=== PATIENT | male | born 1960 | race Two or more races ===

== ENCOUNTER 2020-05-04 08:40 | Outpatient (CLI) | payer BC | END 2020-05-04 23:59 | disposition home or self-care (01) | LOC: CARD 08:40 | PROVIDERS: ATTEND Internal Medicine Interventional Cardiology | DX: I82.493 Acute embolism and thrombosis of other specified deep vein of lower extremity, bilateral (principal) | CPT/HCPCS: 93970-TC ==

== ENCOUNTER 2020-06-15 12:47 | Outpatient (CLI) | payer BC | END 2020-06-15 23:59 | disposition home or self-care (01) | LOC: CARD 12:47 | DX: R60.0 Localized edema (principal) | CPT/HCPCS: 93971-TC ==

== ENCOUNTER 2020-06-26 08:49 | Outpatient (CLI) | payer BC | END 2020-06-26 23:59 | disposition home or self-care (01) | LOC: US 08:49 | DX: R60.0 Localized edema (principal) | CPT/HCPCS: 76700-TC ==

== ENCOUNTER 2020-07-03 11:08 | Outpatient (CLI) | payer BC | END 2020-07-03 23:59 | disposition home or self-care (01) | LOC: MRI 11:08 | PROVIDERS: ATTEND Specialist | DX: M17.12 Unilateral primary osteoarthritis, left knee (principal); M25.462 Effusion, left knee | CPT/HCPCS: 73721-TC ==

== ENCOUNTER 2020-07-13 14:35 | Outpatient (CLI) | payer BC ==
[2020-07-13 16:44] LABS: CALCIUM, SERUM 8.8 mg/dL (8.5-10.1); CREATININE 0.8 mg/dL (0.6-1.3); POTASSIUM 3.9 mmol/L (3.5-5.1)
== END 2020-07-13 23:59 | disposition home or self-care (01) ==
LOC: LAB 14:35
PROVIDERS: ATTEND Surgery Vascular Surgery
DX: M79.89 Other specified soft tissue disorders (principal)
CPT/HCPCS: 36415; 80048-TC

== ENCOUNTER 2020-07-26 08:48 | Outpatient (CLI) | payer BC ==
[2020-07-26] MEDS ORDERED: IOHEXOL-300 100 ML VIAL IV ONE (09:00)
[2020-07-26] MEDS ORDERED: IV NS 0.9% 250 ML IV ONE (09:00)
== END 2020-07-26 23:59 | disposition home or self-care (01) ==
LOC: CT 08:48
PROVIDERS: ATTEND Surgery Vascular Surgery
DX: N40.0 Benign prostatic hyperplasia without lower urinary tract symptoms (principal); J98.11 Atelectasis; M47.819 Spondylosis without myelopathy or radiculopathy, site unspecified; Z90.49 Acquired absence of other specified parts of digestive tract
CPT/HCPCS: 74177; J7050; Q9967

== ENCOUNTER 2020-11-14 08:08 | Outpatient (CLI) | payer BC ==
[2020-11-14 09:06] LABS: BASOPHILS % (AUTO) 0.2 % (0.0-2.0); EOSINOPHILS % (AUTO) 1.9 % (0.0-6.0); HEMATOCRIT 49 % (39-51); HEMOGLOBIN 15.8 g/dL (13.5-17.5); LYMPHOCYTES # (AUTO) 2.2 /CMM (0.8-4.8); LYMPHOCYTES % (AUTO) 34.8 % (20.0-44.0); MEAN CORPUSCULAR HGB CONC 33 g/dl (31.0-36.0); MEAN CORPUSCULAR VOLUME 88 fL (80-96); MONOCYTES # (AUTO) 0.4 /CMM (0.1-1.30); MONOCYTES % (AUTO) 6.1 % (2.0-12.0); NEUTROPHILS # (AUTO) 3.6 /CMM (1.8-8.9); PLATELET COUNT (AUTO) 231 /CMM (150-450); RED BLOOD CELL COUNT(AUTO) 5.57 MIL/uL (4.5-6.0); WHITE BLOOD COUNT (AUTO) 6.3 K/uL (4.3-11.0)
[2020-11-14 09:09] LABS: BILIRUBIN,URINE NEGATIVE (NEGATIVE); COLOR,URINE YELLOW (YELLOW); LEUKOCYTE ESTERASE ,URINE NEGATIVE (NEGATIVE); NITRITE, URINE NEGATIVE (NEGATIVE); PROTEIN,URINE NEGATIVE (NEGATIVE); UGLUCOSE NEGATIVE (NEGATIVE); UROBILINOGEN,URINE 0.2 EU/dL (0.2)
[2020-11-14 10:00] LABS: PROSTATE SPECIFIC ANTIGEN SCR 1.34 ng/mL (0.00-4.00); THYROID STIMULATING HORMONE 2.454 uIU/mL (0.358-3.74)
[2020-11-14 10:03] LABS: BACTERIA,URINE None seen /HPF (None Seen); RBC,URINE 0-2 /HPF (0-2); SQUAMOUS EPITHELIAL CELL,UR Few /HPF (None Seen); WBC,URINE NONE SEEN /HPF (0-3)
[2020-11-14 10:27] LABS: ALBUMIN 3.9 g/dL (3.4-5.0); BILIRUBIN,TOTAL 0.6 mg/dL (0.2-1.0); CALCIUM, SERUM 8.5 mg/dL (8.5-10.1); CREATININE 0.9 mg/dL (0.6-1.3); MAGNESIUM 1.8 mg/dL (1.8-2.4); POTASSIUM 4.2 mmol/L (3.5-5.1); TOTAL PROTEIN, SERUM 7.3 g/dL (6.4-8.2)
== END 2020-11-14 23:59 | disposition home or self-care (01) ==
LOC: US 08:08
DX: E11.9 Type 2 diabetes mellitus without complications (principal); N40.0 Benign prostatic hyperplasia without lower urinary tract symptoms
CPT/HCPCS: 36415; 76856-TC; 80053-TC; 80061-TC; 81001; 82728-TC; 83540-TC; 83735-TC; 84153-TC; 84154-TC; 84443-TC; 85025-TC; 85652-TC

== ENCOUNTER 2021-05-24 08:45 | Outpatient (CLI) | payer BC | END 2021-05-24 23:59 | disposition home or self-care (01) | LOC: WOU 08:45 | PROVIDERS: ATTEND Podiatrist Foot & Ankle Surgery | DX: B35.1 Tinea unguium (principal); L60.0 Ingrowing nail; M79.675 Pain in left toe(s); E11.9 Type 2 diabetes mellitus without complications | CPT/HCPCS: 88304-TC; 88311-TC; 88312-TC; G0463 ==

== ENCOUNTER 2021-07-11 09:54 | Outpatient (CLI) | payer BC ==
[2021-07-11 10:46] LABS: BASOPHILS % (AUTO) 0.1 % (0.0-2.0); EOSINOPHILS % (AUTO) 1.7 % (0.0-6.0); HEMATOCRIT 47 % (39-51); HEMOGLOBIN 16.1 g/dL (13.5-17.5); LYMPHOCYTES # (AUTO) 1.8 K/uL (0.8-4.8); LYMPHOCYTES % (AUTO) 34.8 % (20.0-44.0); MEAN CORPUSCULAR HGB CONC 34 g/dl (31.0-36.0); MEAN CORPUSCULAR VOLUME 88 fL (80-96); MONOCYTES # (AUTO) 0.3 K/uL (0.1-1.30); MONOCYTES % (AUTO) 4.9 % (2.0-12.0); NEUTROPHILS % (AUTO) 58.5 % (43.0-81.0); PLATELET COUNT (AUTO) 212 K/uL (150-450); RED BLOOD CELL COUNT(AUTO) 5.36 MIL/uL (4.5-6.0); WHITE BLOOD COUNT (AUTO) 5.1 K/uL (4.3-11.0)
[2021-07-11 11:00] LABS: BILIRUBIN,URINE NEGATIVE (NEGATIVE); COLOR,URINE YELLOW (YELLOW); LEUKOCYTE ESTERASE ,URINE NEGATIVE (NEGATIVE); NITRITE, URINE POSITIVE (NEGATIVE); PROTEIN,URINE NEGATIVE (NEGATIVE); UGLUCOSE NEGATIVE (NEGATIVE); UROBILINOGEN,URINE 0.2 EU/dL (0.2)
[2021-07-11 11:19] LABS: RBC,URINE NONE SEEN /HPF (0-2)
[2021-07-11 11:20] LABS: BACTERIA,URINE None seen /HPF (None Seen); SQUAMOUS EPITHELIAL CELL,UR Rare /HPF (None Seen); WBC,URINE NONE SEEN /HPF (0-3)
[2021-07-11 11:25] LABS: PROSTATE SPECIFIC ANTIGEN SCR 0.57 ng/mL (0.00-4.00); THYROID STIMULATING HORMONE 2.904 uIU/mL (0.358-3.74)
[2021-07-11 11:40] LABS: ALBUMIN 4.4 g/dL (3.4-5.0); BILIRUBIN,TOTAL 0.7 mg/dL (0.2-1.0); CALCIUM, SERUM 8.6 mg/dL (8.5-10.1); CREATININE 1.1 mg/dL (0.6-1.3); TOTAL PROTEIN, SERUM 8.5 g/dL (6.4-8.2)
[2021-07-11 13:16] LABS: BILIRUBIN,DIRECT 0.2 mg/dL (0.0-0.2)
== END 2021-07-11 23:59 | disposition home or self-care (01) ==
LOC: LAB 09:54
PROVIDERS: ATTEND Internal Medicine
DX: R10.9 Unspecified abdominal pain (principal); N40.0 Benign prostatic hyperplasia without lower urinary tract symptoms; I10 Essential (primary) hypertension; E78.5 Hyperlipidemia, unspecified; E11.9 Type 2 diabetes mellitus without complications
CPT/HCPCS: 36415; 80053-TC; 80061-TC; 81001; 82248-TC; 82306; 82607-TC; 82728-TC; 83540-TC; 83735-TC; 84153-TC; 84439-TC; 84443-TC; 85025-TC; 85652-TC; 87086-TC

== ENCOUNTER 2021-07-16 09:59 | Outpatient (CLI) | payer BC ==
[2021-07-16] MEDS ORDERED: IOHEXOL-350 100 ML VIAL IV ONE (11:01)
== END 2021-07-16 23:59 | disposition home or self-care (01) ==
LOC: CT 09:59
PROVIDERS: ATTEND Internal Medicine
DX: N20.0 Calculus of kidney (principal); K76.9 Liver disease, unspecified
CPT/HCPCS: 74170; Q9967

== ENCOUNTER 2021-10-03 09:48 | Outpatient (CLI) | payer BC ==
[2021-10-03 14:50] LABS: BASOPHILS % (AUTO) 0.3 % (0.0-2.0); EOSINOPHILS % (AUTO) 1.5 % (0.0-6.0); HEMATOCRIT 46 % (39-51); HEMOGLOBIN 15.3 g/dL (13.5-17.5); LYMPHOCYTES # (AUTO) 2.5 K/uL (0.8-4.8); LYMPHOCYTES % (AUTO) 32.6 % (20.0-44.0); MEAN CORPUSCULAR HGB CONC 33 g/dl (31.0-36.0); MEAN CORPUSCULAR VOLUME 88 fL (80-96); MONOCYTES # (AUTO) 0.4 K/uL (0.1-1.30); MONOCYTES % (AUTO) 5.6 % (2.0-12.0); NEUTROPHILS # (AUTO) 4.7 K/uL (1.8-8.9); PLATELET COUNT (AUTO) 239 K/uL (150-450); RED BLOOD CELL COUNT(AUTO) 5.24 MIL/uL (4.5-6.0); WHITE BLOOD COUNT (AUTO) 7.8 K/uL (4.3-11.0)
[2021-10-03 15:13] LABS: URIC ACID 5.9 mg/dL (2.6-7.2)
[2021-10-03 15:22] LABS: ALANINE AMINOTRANSFERASE 27 U/L (12-78); ALKALINE PHOSPHATASE 74 U/L (46-116); ASPARTATE AMINOTRANSFERASE 15 U/L (15-37); BILIRUBIN,TOTAL 0.5 mg/dL (0.2-1.0); C-REACTIVE PROTEIN < 0.2 mg/dL (0.0-0.9); CALCIUM, SERUM 8.7 mg/dL (8.5-10.1); CARBON DIOXIDE 27 mmol/L (21-32); CHLORIDE 104 mmol/L (98-107); CREATININE 0.9 mg/dL (0.6-1.3); GLUCOSE 89 mg/dL (74-106); POTASSIUM 4.1 mmol/L (3.5-5.1); SODIUM SERUM 138 mmol/L (136-145); TOTAL PROTEIN, SERUM 7.3 g/dL (6.4-8.2); UREA NITROGEN, BLOOD 19 mg/dL (7-18)
== END 2021-10-03 23:59 | disposition home or self-care (01) ==
LOC: MRI 09:48
PROVIDERS: ATTEND Internal Medicine
DX: M17.11 Unilateral primary osteoarthritis, right knee (principal); M71.21 Synovial cyst of popliteal space [Baker], right knee; M25.461 Effusion, right knee; M22.41 Chondromalacia patellae, right knee; M65.861 Other synovitis and tenosynovitis, right lower leg; M79.89 Other specified soft tissue disorders
CPT/HCPCS: 36415; 73721-TC; 80053-TC; 84550-TC; 85025-TC; 85652-TC; 86140-TC; 86200; 86431-TC

== ENCOUNTER 2021-12-11 14:25 | Outpatient (CLI) | payer BC | END 2021-12-11 23:59 | disposition home or self-care (01) | LOC: MRI 14:25 | PROVIDERS: ATTEND Internal Medicine | DX: M51.27 Other intervertebral disc displacement, lumbosacral region (principal); M48.8X7 Other specified spondylopathies, lumbosacral region; M48.07 Spinal stenosis, lumbosacral region | CPT/HCPCS: 72148-TC ==

== ENCOUNTER 2022-05-08 10:17 | Outpatient (CLI) | payer BC ==
[2022-05-08 11:05] LABS: BASOPHILS % (AUTO) 0.1 % (0.0-2.0); BILIRUBIN,URINE NEGATIVE (NEGATIVE); COLOR,URINE YELLOW (YELLOW); HEMATOCRIT 45 % (39-51); HEMOGLOBIN 14.7 g/dL (13.5-17.5); LEUKOCYTE ESTERASE ,URINE NEGATIVE (NEGATIVE); LYMPHOCYTES # (AUTO) 2.1 K/uL (0.8-4.8); MEAN CORPUSCULAR HGB CONC 33 g/dl (31.0-36.0); MEAN CORPUSCULAR VOLUME 86 fL (80-96); MONOCYTES # (AUTO) 0.4 K/uL (0.1-1.30); MONOCYTES % (AUTO) 6.3 % (2.0-12.0); NEUTROPHILS # (AUTO) 3.7 K/uL (1.8-8.9); NEUTROPHILS % (AUTO) 58.6 % (43.0-81.0); NITRITE, URINE NEGATIVE (NEGATIVE); PH,URINE 5.5 (5.0-8.0); PLATELET COUNT (AUTO) 262 K/uL (150-450); PROTEIN,URINE NEGATIVE (NEGATIVE); UGLUCOSE NEGATIVE (NEGATIVE); UROBILINOGEN,URINE 0.2 EU/dL (0.2); WHITE BLOOD COUNT (AUTO) 6.3 K/uL (4.3-11.0)
[2022-05-08 11:23] LABS: BACTERIA,URINE Rare /HPF (None Seen); RBC,URINE 0-2 /HPF (0-2); SQUAMOUS EPITHELIAL CELL,UR Few /HPF (None Seen)
[2022-05-08 11:33] LABS: ALANINE AMINOTRANSFERASE 25 U/L (12-78); ALBUMIN 3.9 g/dL (3.4-5.0); ALKALINE PHOSPHATASE 85 U/L (46-116); ASPARTATE AMINOTRANSFERASE 16 U/L (15-37); BILIRUBIN,TOTAL 0.6 mg/dL (0.2-1.0); CALCIUM, SERUM 8.6 mg/dL (8.5-10.1); CARBON DIOXIDE 27 mmol/L (21-32); CHLORIDE 102 mmol/L (98-107); CREATININE 0.9 mg/dL (0.6-1.3); GLUCOSE 109 mg/dL (74-106); MAGNESIUM 2.1 mg/dL (1.8-2.4); SODIUM SERUM 136 mmol/L (136-145)
[2022-05-08 11:38] LABS: IRON, SERUM 93 ug/dl (50-175); TOTAL IRON BINDING CAPACITY 361 ug/dl (250-450)
[2022-05-08 11:49] LABS: TOTAL PROTEIN, SERUM 7.6 g/dL (6.4-8.2); UREA NITROGEN, BLOOD 16 mg/dL (7-18)
[2022-05-08 11:56] LABS: CHOLESTEROL 116 mg/dL (<200); CREATINE KINASE, TOTAL 135 U/L (39-308); FERRITIN 56 ng/mL (8-388); HDL CHOLESTEROL 38 mg/dL (40-60); LDL 73 mg/dL (0-99); PROSTATE SPECIFIC ANTIGEN SCR 1.62 ng/mL (0.00-4.00); THYROID STIMULATING HORMONE 2.467 uIU/mL (0.358-3.74); TRIGLYCERIDES 59 mg/dL (30-150); URIC ACID 6.3 mg/dL (2.6-7.2)
[2022-05-08 12:11] LABS: C-REACTIVE PROTEIN < 0.2 mg/dL (0.0-0.9)
== END 2022-05-08 23:59 | disposition home or self-care (01) ==
LOC: LAB 10:17
PROVIDERS: ATTEND Internal Medicine
DX: E11.9 Type 2 diabetes mellitus without complications (principal); E78.5 Hyperlipidemia, unspecified
CPT/HCPCS: 36415; 80053-TC; 80061-TC; 81001; 82306; 82550-TC; 82728-TC; 83540-TC; 83735-TC; 84153-TC; 84154-TC; 84443-TC; 84550-TC; 85025-TC; 85652-TC; 86140-TC; 87086-TC

== ENCOUNTER 2022-09-19 10:09 | Outpatient (CLI) | payer BC | END 2022-09-19 23:59 | disposition home or self-care (01) | LOC: RAD 10:09 | PROVIDERS: ATTEND Internal Medicine | DX: M17.0 Bilateral primary osteoarthritis of knee (principal); M25.861 Other specified joint disorders, right knee; M25.862 Other specified joint disorders, left knee; M25.762 Osteophyte, left knee; M25.761 Osteophyte, right knee | CPT/HCPCS: 73564-TC ==

== ENCOUNTER 2024-08-02 05:36 | Inpatient (IN) | payer BC ==
[~2024-08-02] VITALS: Ht 157.5 cm; Wt 77.1 kg
[2024-08-02] MEDS ORDERED: TRANEXAMIC ACID 1,000 MG/10 ML VIAL ONE (06:21)
[2024-08-02] MEDS ORDERED: BUPIVACAINE 0.5 % PF 150 MG/30 ML VIAL ONE (06:22)
[2024-08-02] MEDS ORDERED: POLYMYXIN B SULFATE 500,000 UNITS ONE (06:24)
[2024-08-02] MEDS ORDERED: TRANEXAMIC ACID 3,000 MG in SODIUM CHLORIDE IRRIG SOLUTION 70 ML IR ONE (06:30)
[2024-08-02] MEDS ORDERED: MIDAZOLAM HCL 2 MG/2ML VIAL ONE (07:02)
[2024-08-02] MEDS ORDERED: FENTANYL PF 100MCG/2ML AMPUL ONE (07:02)
[2024-08-02] MEDS ORDERED: HYDROMORPHONE INJ 2 MG/ML DISP.SYRIN IV PRN (09:30)
[2024-08-02] MEDS ORDERED: ONDANSETRON HCL/PF 4 MG/2 ML VIAL IVP PRN (09:30)
[2024-08-02] MEDS ORDERED: diphenhydrAMINE HCL 25 MG CAPSULE PO PRN (10:30)
[2024-08-02] MEDS ORDERED: MAG HYDROX/AL HYDROX/SIMETH 30 ML UDC PO PRN (10:30)
[2024-08-02] MEDS ORDERED: ONDANSETRON HCL/PF 4 MG/2 ML VIAL IV PRN (10:30)
[2024-08-02] MEDS: PANTOPRAZOLE 40 MG TABLET.DR PO SCH (10:30)
[2024-08-02] MEDS ORDERED: oxyCODONE IR immediate release 5 MG TABLET PO PRN (10:30)
[2024-08-02] MEDS ORDERED: MORPHINE SULFATE INJ 4 MG/ML DISP.SYRIN IM/IV/SC PRN (10:30)
[2024-08-02] MEDS ORDERED: ACETAMINOPHEN 325 MG TABLET PO PRN (10:30)
[2024-08-02] MEDS ORDERED: MENTHOL/CETYLPYRD (CEPACOL) 1 LOZ LOZENGE PO PRN (10:30)
[2024-08-02] MEDS: PANTOPRAZOLE 40 MG TABLET.DR PO ONE (10:43)
[2024-08-02] MEDS: oxyCODONE IR immediate release 5 MG TABLET PO ONE (10:44)
[2024-08-02] MEDS: TAMSULOSIN 0.4 MG CAP.SR.24H PO SCH (11:40)
[2024-08-02] MEDS: BETHANECHOL CHLORIDE (25 MG) 25 MG TABLET PO SCH (11:40)
[2024-08-02] MEDS: DOCUSATE SODIUM 100 MG CAPSULE PO SCH (11:40)
[2024-08-02] MEDS: METFORMIN 500 MG TABLET PO SCH (11:42)
[2024-08-02 12:00] VITALS: BP 114/70; TEMP 97.6; O2SAT 99
[2024-08-02] MEDS: GABAPENTIN 300 MG CAPSULE PO SCH (13:48)
[2024-08-02] MEDS: ANCEF 1 GM/50 ML D5W IV SCH (14:47)
[2024-08-02] MEDS ORDERED: GABA300C PO (15:27)
[2024-08-02] MEDS ORDERED: ASPI-992 PO (15:27)
[2024-08-02] MEDS ORDERED: TAMS-12 PO (15:27)
[2024-08-02] MEDS ORDERED: OXYC1TAB12 PO (15:27)
[2024-08-02] MEDS ORDERED: CEPH500C2 PO (15:27)
[2024-08-02] MEDS ORDERED: METF-440 PO (15:27)
[2024-08-02] MEDS ORDERED: FINA5TAB11 PO (15:27)
[2024-08-02] MEDS ORDERED: SITA100T PO (15:27)
[2024-08-02 16:00] VITALS: BP 139/82; TEMP 97.8; TEMP 98.1; O2SAT 97
[2024-08-02 20:00] VITALS: BP 136/80; TEMP 97.9; O2SAT 97
[2024-08-02] MEDS: oxyCODONE IR immediate release 5 MG TABLET PO PRN (20:03)
[2024-08-02] MEDS ORDERED: TAMSULOSIN 0.4 MG CAP.SR.24H PO SCH (22:00)
[2024-08-03] MEDS: IV LR 1000 ML 1,000 ML IV PRN (05:11)
[2024-08-03 07:00] VITALS: BP 134/65; TEMP 98.2; O2SAT 97
[2024-08-03 08:00] VITALS: BP 134/65; TEMP 98.2; O2SAT 97
[2024-08-03] MEDS: ASPIRIN 325 MG TABLET PO SCH (08:15)
== END 2024-08-03 12:15 | disposition home or self-care (01) | DRG 470 ==
LOC: DS 05:36 → MEDSG1 06:02 → MED 09:45
PROVIDERS: ADMIT Nurse Practitioner Acute Care; ATTEND Nurse Practitioner Acute Care
PROC: 0SRD0J9 Replacement of Left Knee Joint with Synthetic Substitute, Cemented, Open Approach (ICD-10-PCS; principal; 2024-08-02)
DX: M17.12 Unilateral primary osteoarthritis, left knee (principal); D68.69 Other thrombophilia; E11.9 Type 2 diabetes mellitus without complications; N40.0 Benign prostatic hyperplasia without lower urinary tract symptoms; Z74.09 Other reduced mobility; Z79.84 Long term (current) use of oral hypoglycemic drugs
CPT/HCPCS: 82962-TC; 97110-TC; 97116-TC; 97530-TC; A4217; A4223; G0378; J0690; J1100; J1885; J2250; J2405; J2704; J2765; J3010; J3490; J7030; J7040; J7060; J7120